=== PATIENT | female | born 1995 | race Caucasian/White ===

== ENCOUNTER 2020-07-14 09:15 | Inpatient (IN) | payer OTHER, SELFPAY ==
--- NOTE | 2020-07-14 10:05 | W.PM.HP.N ---
History of Present Illness 25 yo @ 38 weeks in active labor. Evaluated @ 6 AM - cat 1 NST with 1 cm/70%/0 station cervix At home rested, ctx more intense steady and q 2 min - some bloody show, ruptured spon @ ~10:00 - mec noted low back discomfort worst part so far. good movement. GBS neg taking liquids well - not hungry no n/v/d - no covid sx [facility] reviewed and attached to paper chart no sd risk - efw 3200 gm, no gdm O:strong, barely tolerating ctx they are intense and persistent lungs - clear cv s- reg, no murmur abd - soft in between ctx, non tender with ctx - quite firm no edema distally, nl reflexes distally cervix - 4 cm/90%/+1 station/ot/ mod mec/vtx NST - category 1 - no decels, steady strong ctx Q2 min A: Early vs active labor mec with srom GBS neg Maternal and wellbeing P: Extensive counselling re pain mgmt options for labor - she wishes to start with nitrous encourage walking, shower, tactile support from partner Expect follow EFJasmine, mamta garcia HL, cont po fluids Ulisses Croft M.D.
[2020-07-14 11:09] LABS: HCT 41.7 % (36.0-46.0); MCH 30.6 pg (27.0-33.0); MCHC 33.6 % (32.0-36.0); MPV 9.7 fL (8.0-11.0); Platelet Count 295 10^3/uL (130-400); RBC 4.58 10^6/uL (3.93-5.22); RDW 12.5 % (11.7-14.6); WBC 24.12 10^3/uL (4.4-10.8)
[2020-07-14] MEDS: fentaNYL 100 MCG/2 ML VIAL (12:47)
[2020-07-14] MEDS: Ibuprofen 600 MG TAB PO (20:14)
[2020-07-14] MEDS: Acetaminophen 325 MG TAB 650 MG PO (20:14)
[2020-07-15] MEDS: Acetaminophen 325 MG TAB 650 MG PO ×4 (06:49→23:48)
[2020-07-15] MEDS: Ibuprofen 600 MG TAB PO ×3 (06:49→19:27)
[2020-07-16] MEDS: Ibuprofen 600 MG TAB PO ×2 (03:59→09:49)
[2020-07-16] MEDS: Acetaminophen 325 MG TAB 650 MG PO (07:52)
[2020-07-16 08:17] LABS: COVID-19 RT-PCR UVMMC Result Negative (Negative)
== END 2020-07-16 13:55 | disposition home or self-care (01) | DRG 807 ==
PROVIDERS: Admitting Provider Family Medicine; PCP Family Medicine; Visit Provider Family Medicine
DX: O62.1 Secondary uterine inertia (principal); Z37.0 Single live birth; O70.1 Second degree perineal laceration during delivery; O69.81X0 Labor and delivery complicated by cord around neck, without compression, not applicable or unspecified; O77.0 Labor and delivery complicated by meconium in amniotic fluid; O76 Abnormality in fetal heart rate and rhythm complicating labor and delivery; O75.81 Maternal exhaustion complicating labor and delivery; O90.89 Other complications of the puerperium, not elsewhere classified; O42.02 Full-term premature rupture of membranes, onset of labor within 24 hours of rupture; I95.2 Hypotension due to drugs; T41.3X5A Adverse effect of local anesthetics, initial encounter; Z3A.38 38 weeks gestation of pregnancy; Z11.59 Encounter for screening for other viral diseases; N39.41 Urge incontinence
CPT/HCPCS: 36415; 85027; 86850; 86900; 86901; 99223; U0003; J3010

== ENCOUNTER 2022-07-15 04:50 | Inpatient (IN) | payer BC, SELFPAY ==
[2022-07-15] VITALS (89 sets, daily range): BP systolic 76–131; BP diastolic 42–83; PULSE 68–115; RESP 14–18; TEMP 36.5–37.3; O2SAT 96–100; BMI 23.3
--- NOTE | 2022-07-15 05:04 | W.PM.OBHPL1 ---
Date of service: 07/15/22 Time of Service: 05:05 Assessment and Plan Assessment and plan (1) and not yet delivered in third trimester: Status: Acute Assessment and plan: at 40 weeks presents in active labor, GBS pos, cat I FHT with regular contraction pattern. Requests epidural for pain control. PCN ppx for GBS status. Intermittent monitoring. Plan for . (2) GBS carrier: Status: Acute (3) Normal labor: Status: Acute OB-HPI Labor/Delivery History of Present Illness Reason for Visit: Labor Chief Complaint: Uterine Contractions. DEEDEE Calculator Estimated Delivery Date Method Current WG Current Estimate 07/15/22 LMP (Certain) 40w 0d Comments: 27 yo presents at 40 weeks for labor evaluation. called overnight at 2:40am with 1-2 hours of contractions every 10-20 minutes and getting closer and more intense, no LOF, no VB, good FM. Called back at 4am with contractions every 5 minutes and unable to talk through them. Advised to present to [facility] as she is GBS positive. history notable for O pos, ab neg, RI, GBS positive. COVID pos in second trimester, had been on aspirin until 36 weeks. First delivery with long labor and use of vacuum. Declined genetic testing. Having a girl. History of Present Expected Delivery Route/Plan [facility] All Active Problems (Updated 07/15/22 @ 05:46 by Rama Curtis) Normal labor (Acute) and not yet delivered in third trimester (Acute) GBS carrier (Acute) Social History Smoking/Tobacco Use Status: Never Smoking risk assessment performed?: Yes Alcohol Intake: former Drug use: Never Substance use type: does not use Do you feel safe at home: Yes Do you feel safe in your relationship?: Yes History History 2 Para 1 Hx # Term Pregnancies Multiple births Hx # Pregnancies Ectopic pregnancies AB induced Hx Number of Living Children AB spontaneous Meds Allergies and Home Medications Allergies Allergy/AdvReac Type Severity Reaction Status Date / Time No Known Allergies Allergy Unverified 07/15/22 05:21 Home Medications Medication Instructions Recorded Confirmed Type twnftcty-sqp-Fn-FA 1 mg tab PO 07/15/22 History tablet Exam Physical Exam Vital Signs Reviewed: Yes Constitutional Constitutional: no acute distress Detailed Labor and Delivery Exam Dilation: 5 Effacement (%): 90 station: -2 Cerna Score: Cervical Points Exam 0 1 2 3 Dilation Closed 1-2cm 3-4 cm 5-6cm Effacement 0-30% 40-50% 60-70% 80% Consistency Firm Medium Soft Station -3 -2 -1,0 +1,+2 Position Posterior Mid Anterior Amniotic Membrane Status: Intact Contraction Frequency(min): 4-5 Contraction Duration(sec): 60 Contraction Intensity: Moderate/Strong Fetus A Heart Rate Baseline: 135 Monitor Accelerations: 15 X 15 Monitor Decelerations: None Variability: Moderate (6-25 BPM) Presentation: Vertex Categories: Category I Est. Weight: 2948.35 g Respiratory Exam Respiratory Exam: Normal Cardiovascular Exam Cardiovascular Exam: Normal Results Results Group Beta Strep: Positive Blood Type: O+ Rubella Status: Immune Varicella Immunity: Not Tested Risk Assessment Risk for Shoulder Dystocia Increased Risk?: No Risk for Pre-Eclampsia Daily Dose ASA Indicated: No Risk for Post- Hemorrhage At Risk?: No Risks Reviewed Risks Reviewed Upon Admission: Yes
[2022-07-15] MEDS: Penicillin G POT. 5,000,000 UNITS in Normal Saline 100 ML 200 UNITS IVPB (05:58)
[2022-07-15] MEDS: Normal Saline Flush 10 ML SYR IVP (06:00)
[2022-07-15 06:06] LABS: HCT 39.3 % (36.0-46.0); HGB 13.4 g/dL (11.2-15.7); MCH 31.2 pg (27.0-33.0); MCHC 34.1 % (32.0-36.0); MCV 92 fL (80-95); MPV 10.1 fL (8.0-11.0); Platelet Count 230 10^3/uL (130-400); RBC 4.29 10^6/uL (3.93-5.22); RDW 12.8 % (11.7-14.6); RDW-SD 42.7 fL; WBC 9.72 10^3/uL (4.4-10.8)
--- NOTE | 2022-07-15 06:12 | ANES.PREOP_ITS ---
General Info Date of Service Date Performed: 07/15/22 Height: 5 ft 5 in Weight: 63.503 kg Body Mass Index (BMI): 23.3 Meds Allergies and Home Medications Allergies Allergy/AdvReac Type Severity Reaction Status Date / Time No Known Allergies Allergy Unverified 07/15/22 05:21 Home Medication Medication Instructions Recorded wtrbzbbt-nvr-Gw-FA 1 mg tab PO 07/15/22 tablet Current Visit Medications: Current Medications Generic Name Dose Route Start Last Admin Trade Name Freq PRN Reason Stop Dose Admin Sodium Chloride 500 mls @ 0 mls/hr 07/15/22 04:50 Saline 500ml Bag IV PRN PRN As Directed Penicillin G Potassium 3,000, 50 mls @ 100 mls/hr 07/15/22 09:00 000 units/ Sodium Chloride IVPB Q4H KALANI IV Miscellaneous Supplies 1 each 07/15/22 05:00 07/15/22 05:40 Iv Access IV 1 each DIRECTED KALANI Administration Sodium Chloride 0 ml 07/15/22 04:50 07/15/22 06:00 Normal Saline Flush 10 Ml Syr IVP 10 ml PRN PRN Administration PFSH Active Problems Active Problems: Problem Status Onset Code Normal labor O80, Z37.9 and not yet delivered in third trimester Z34.93 GBS carrier Z22.330 Tobacco Smoking/Tobacco Use Status: Never Alcohol Alcohol Intake: former Substance Use Substance use: Never Substance use type: does not use Prental History History 2 Para 1 Hx # Term Pregnancies Multiple births Hx # Pregnancies Ectopic pregnancies AB induced Hx Number of Living Children AB spontaneous Vital Signs and Lab Results Vital Signs Most Recent Vital Signs in EMR: Most Recent Vital Signs Temp Pulse Resp BP 36.5 C 87 18 128/79 07/15/22 05:14 07/15/22 05:14 07/15/22 05:14 07/15/22 05:14 Lab Results Result Diagrams: 07/15/22 05:40 Blood Type / Crossmatch: No Data to Display Complete Blood Count: White Blood Count 9.72 10^3/uL (4.4-10.8) 07/15/22 05:40 Red Blood Count 4.29 10^6/uL (3.93-5.22) 07/15/22 05:40 Hemoglobin 13.4 g/dL (11.2-15.7) 07/15/22 05:40 Hematocrit 39.3 % (36.0-46.0) 07/15/22 05:40 Platelet Count 230 10^3/uL (130-400) 07/15/22 05:40 Complete Metabolic Panel: No Data to Display Liver Function Panel: No Data to Display Coagulation Panel: No Data to Display Cardiac Panel: No Data to Display Arterial Blood Gas: No Data to Display Venous Blood Gas: No Data to Display Pancreas Panel: No Data to Display Thyroid Panel: No Data to Display Infectious Disease: Coronavirus 2019 Source Nasal/Nares 07/15/22 05:45 HIV (1&2) Ag and Ab, 4th Generation Pending 07/15/22 05: 40 Blood Cultures: No Data to Display Toxicology Panel: No Data to Display Panel: No Data to Display Anesthesia Assessment and Plan Anesthesia History Personal History: No History of Anesthesia Complications Family History: No Family History of Anesthesia Complications Exercise Tolerance Exercise Tolerance: Metabolic Equivalents>4 Cardiac & Pulmonary Exam Cardiac Exam: Normal S1/S2 Heart Sounds Pulmonary Exam: Clear Bilateral Breath Sounds Implantable Cardiac Device Does patient have a Pacemaker or an ICD?: No Airway Exam Known Difficult Airway: No Mallampati Class: 2 Mouth Opening: Normal (> 3cm) Thyromental Distance: Greater than 3 cm Neck Range of Motion: Full ROM Neck Circumference: Normal Teeth Condition: Normal Dentition ASA Classification ASA Score: ASA 2 Emergency Case?: No NPO Status NPO Status: Full Stomach Status Status: Other Anesthesia Plan Resuscitation Status: Full Code Anesthesia Technique: Epidural Anesthesia Airway Planned: Natural Airway Pain Management: Epidural Monitors Used: Standard Monitors Preoperative Comments:: 27 yo female requesting labor epidural. Sig PMHx: denies major. Previous Anes: -epidural JOAQUIN 5 cm, 100 mcg fent/6 ml off of pump - 10 of ephedrine for dizzyness, 3 mL more with good sesation of pain, pump eventually turned down to 6 mL/hr.
[2022-07-15 06:36] LABS: Source Nasal/Nares
[2022-07-15] MEDS: Lactated Ringers 500 ML IV (06:37)
[2022-07-15] MEDS: FentaNYL/ROPIvacaine 2 mcg/ml and 0.1% 200 ML CADD Cassette EP (06:53)
--- NOTE | 2022-07-15 07:04 | W.ANESNEU ---
Epidural/Spinal Catheter Date Performed: 07/15/22 Procedure Start: 06:27 Procedure Stop: 06:35 Requesting Provider: Rama Curtis Procedure Location: Obstetrics Reason Performed: Labor Epidural Standard Monitors Applied: ECG, Blood Pressure and SpO2 Patient Position: Sitting Sedation Given (Indicate Dose Given): No Sedation given Patient Mental Status: Awake Sterility: Hand Hygiene, Surgical Cap, Surgical Mask, Sterile Gloves, Sterile Drape/Sheet and Chlorhexidine Procedure Location: L2-L3 Interspace Epidural Needle: Tuohy 17 Guage Needle Length: 3.5 Inch Needle Approach: Midline Epidural Procedure: Skin Prepped, JOAQUIN to Saline Used and Epidural Catheter Placed (wire reinforced) Catheter Placed?: Catheter Placed Test Dose (Indicate Dose Given): 3ml 1.5% Lidocaine with 1:200K Epinephrine Given and Negative Test Dose Loss of Resistance Depth (cm): 3 Catheter depth at skin (cm): 9 Dressing: Sorbaview Dressing Placed Epidural Provider Bolus (Indicate Dose Given): Total Ropivacaine 0.1% with Fentanyl 2mcg/ml Given from pump. (ml) Dose:: 5 mL Additives (Indicate Dose Given ): None Infusion Medication: Medication Infusion Began Medication Infusion: Ropivacaine 0.1% with Fentanyl 2mcg/ml Maintenance Infusion Rate (ml/hour): 10 PCEA Bolus Dose (ml): 5 Block Level: N/A Paresthesia: None Ultrasound: Used to radhika site Number of Attempts (See previous attempts in note section): 1 Procedure Tolerated: No Complications Procedure Outcome: Successful Performed By: Jamie Nelson
--- NOTE | 2022-07-15 07:36 | W.PM.OBNL1 ---
Date of service: 07/15/22 Time of Service: 07:37 Pelvic Exam Dilation: 8 Effacement (%): 100 station: 0 Contractions Contraction Frequency(min): 3-4 Contraction Duration(sec): 45 Fetus A Heart Rate Baseline: 125 Presentation: Cephalic Variability: Moderate (6-25 BPM) Categories: Category I Accelerations: 15 X 15 Decelerations: None Amniotic Membrane Status: Intact Assessment and Plan Assessment and plan (1) Normal labor: Status: Acute Assessment and plan: at 40w in active labor, now with epidural and making excellent progress. FHT cat I. Has had one dose of PCN, second dose due 9:30-10am. Patient to rest. Anticipate . (2) GBS carrier: Status: Acute Objective Temp Pulse Resp BP Pulse Ox 36.5 C 91 H 16 126/78 98 07/15/22 05:14 07/15/22 07:36 07/15/22 07:28 07/15/22 07:25 07/15/22 07:31 Laboratory Results WBC 9.72 10^3/uL (4.4-10.8) 07/15/22 05:40 RBC 4.29 10^6/uL (3.93-5.22) 07/15/22 05:40 Hgb 13.4 g/dL (11.2-15.7) 07/15/22 05:40 Hct 39.3 % (36.0-46.0) 07/15/22 05:40 MCV 92 fL (80-95) 07/15/22 05:40 MCH 31.2 pg (27.0-33.0) 07/15/22 05:40 MCHC 34.1 % (32.0-36.0) 07/15/22 05:40 RDW 12.8 % (11.7-14.6) 07/15/22 05:40 Plt Count 230 10^3/uL (130-400) 07/15/22 05:40 MPV 10.1 fL (8.0-11.0) 07/15/22 05:40 COVID-19 Source Nasal/Nares 07/15/22 05:45 Patient ABO/Rh O Positive 07/15/22 05:50 Antibody Screen NEGATIVE 07/15/22 05:50 Subjective Interval history since last seen: Comfortable now with epidural. Can feel contractions but not painful. No side effects from epidural noted. Results Hemoglobin/Hematocrit: Hgb 13.4 g/dL (11.2-15.7) 07/15/22 05:40 Hct 39.3 % (36.0-46.0) 07/15/22 05:40
[2022-07-15 07:48] LABS: COVID-19 PCR Negative (Negative)
[2022-07-15] MEDS: Penicillin G POT. 3,000,000 UNITS in Normal Saline 50 ML 100 UNITS IVPB (09:07)
--- NOTE | 2022-07-15 10:40 | W.PM.OBNL1 ---
Date of service: 07/15/22 Time of Service: 10:41 Pelvic Exam Dilation: 9.5 Effacement (%): 90 station: -1 Cervix Position: anterior Consistency: soft Vaginal Exam Presentation: Vertex Contractions Monitor Mode: External Contraction Frequency(min): 3 Contraction Duration(sec): 60 Intensity: Moderate/Strong Fetus A Monitor: External (US) Heart Rate Baseline: 120 Presentation: Vertex Variability: Moderate (6-25 BPM) FHR Rhythm: Regular Characteristics: Normal Accelerations: Present Decelerations: Early Recurrence: Recurrent Amniotic Membrane Status: Ruptured Assessment Note: Category 1 tracing with early decelerations. AOM performed with copious clear fluid. Assessment and Plan Assessment and plan (1) Normal labor: Status: Acute Assessment and plan: Tobin is nearly complete, AROM performed with clear fluid. SVE 9.5/90/-1. GBS positive with 2 doses of pen in, so adequate prophylaxis. Epidural is effective. FHT category 1 with early decels. Recent straight cath with 250cc output. Anticipate delivery soon. (2) GBS carrier: Status: Acute Assessment and plan: See above. Objective Temp Pulse Resp BP Pulse Ox 36.5 C 87 18 124/73 98 07/15/22 07:36 07/15/22 10:07 07/15/22 10:07 07/15/22 10:07 07/15/22 09:01 Laboratory Results WBC 9.72 10^3/uL (4.4-10.8) 07/15/22 05:40 RBC 4.29 10^6/uL (3.93-5.22) 07/15/22 05:40 Hgb 13.4 g/dL (11.2-15.7) 07/15/22 05:40 Hct 39.3 % (36.0-46.0) 07/15/22 05:40 MCV 92 fL (80-95) 07/15/22 05:40 MCH 31.2 pg (27.0-33.0) 07/15/22 05:40 MCHC 34.1 % (32.0-36.0) 07/15/22 05:40 RDW 12.8 % (11.7-14.6) 07/15/22 05:40 Plt Count 230 10^3/uL (130-400) 07/15/22 05:40 MPV 10.1 fL (8.0-11.0) 07/15/22 05:40 COVID-19 Source Nasal/Nares 07/15/22 05:45 SARS-CoV-2 (PCR) Negative (Negative) 07/15/22 05:45 Patient ABO/Rh O Positive 07/15/22 05:50 Antibody Screen NEGATIVE 07/15/22 05:50 Vital Signs Reviewed: Yes Subjective Patient Reports: No new Complaints Interval history since last seen: Tobin is doing well. Epidural effective for pain management. Hasnt voided since before epidural. Results Hemoglobin/Hematocrit: Hgb 13.4 g/dL (11.2-15.7) 07/15/22 05:40 Hct 39.3 % (36.0-46.0) 07/15/22 05:40
[2022-07-15] MEDS: Oxytocin/Normal Saline 30 UNIT/500 ML BAG 334 UNITS IV (12:55)
[2022-07-15] MEDS: Dibucaine 1% 28 GM TUBE TP ×2 (13:00→18:57)
[2022-07-15] MEDS: miSOPROStol 200 MCG TAB (13:29)
[2022-07-15] MEDS: Lactated Ringers 1,000 ML 999 ML IV (13:33)
[2022-07-15] MEDS: Tranexamic Acid 1,000 MG/10 ML VIAL 1000 MG (13:35)
[2022-07-15] MEDS: Methylergonovine 0.2 MG/ML VIAL (13:37)
--- NOTE | 2022-07-15 14:05 | OBVDS_ITS ---
Date of service: 07/15/22 Time of Service: 14:05 OB Labor/ Delivery Information Baby A Delivery Delivery Method: Spontaneaous Presentation: Vertex Cephalic Position: Vertex Vertex Position: Right Occipital Anterior Breech Position: N/A Cord Description-Baby A: 3 Vessels, Nuchal Cord and Reduced (after delivery) Amniotic Fluid: Clear Estimated Blood Loss: 1000cc Delivery Outcome: Liveborn Complications: none Transferred: Remains with Mother Providers Doctor: Serjio Arriola Marketing Intelligence Manager: Jamie Nelson Construction Plant Operator: Serjio Arriola Nurse: Nathalie Fritz Nurse: Sis Galeano Other: Carrie (Student with LR) Labor/Delivery Information Number of Babies in Womb: 1 Steroids Given: None Reason Steroids Not Administered: N/A Group Beta Strep: Positive Antibiotics Administered: Yes Number of Doses of Antibiotics: 2 Rubella Status: Immune Blood Type: O+ Varicella Immunity: Not Tested Born En Route: No Maternal Complications: Hemorrhage Shoulder Dystocia: No Stages of Labor Onset of Labor Date: 07/15/22 Onset of Labor Time: 00:00 Complete Dilatation Date: 07/15/22 Complete Dilatation Time: 11:48 Labor - Stage 1 Duration: 0 minutes ROM Baby A: 07/15/22 ROM Baby A: 10:34 ROM Total Time- Baby A: [id number] Infant Delivery Date-Baby A: 07/15/22 Delivery Time-Baby A: 12:54 Labor Stage 2 Duration: 1 hours and 6 minutes Placenta Delivery Date-Baby A: 07/15/22 Placenta Delivery Time-Baby A: 13:27 Labor-Stage 3 Duration: 33 minutes Total Length of Labor-Baby A: 12 hours and 54 minutes Placenta Status: Delivered Baby A Gender: Female Gestational Status: Term (39-41.6 wks) Gestational Age in Weeks/Days: 40 Weeks and 0 Days Score-1 Minute Interval(Baby A) Heart Rate-1 minute: 100 BPM or Greater Respiratory Effort- 1 minute: Spontaneous/Strong Cry Muscle Tone-1 minute: Active Movement Reflex Response-1 minute: Prompt Response Color-1 minute: Bluish Hands or Feet Total Score-1 minute: 9 Score-5 Minute Interval(Baby A) Heart Rate- 5 minute: 100 BPM or Greater Respiratory Effort-5 minute: Spontaneous/Strong Cry Muscle Tone-5 minute: Active Movement Reflex Response-5 minute: Prompt Response Color-5 minute: Bluish Hands or Feet Total Score- 5 minute: 9 Procedure Procedures: Control of Hemorrhage , see below in PPH Note / Retained Placenta Extraction , see below in PPH Note Interventions Repair of Laceration Type: Perineal, Laceration Extension: Second Degree. Sponge Count Correct: Yes, Sharp Count Correct: Yes. Laceration Repair Note: 2nd degree perineal laceration repaired in the usual fashion with 3-0 vicryl with running deep layer of suture for hemostasis then skin repair of perineum and vaginal wall. Hemorrrhage Note Note Note: After delivery, placenta was retained for 33 minutes, but eventually delivered with firm pressure. Dr Solorio had already been called for support of possible retained placenta. Pitocin was running since delivery but had been stopped to allow delivery of placenta. No significant visible bleeding until after placenta delivered at which time there was a brisk flow. Fundus was found to still be quite large and soft. Restarted after placenta delivered at 1327. Miso 800mcg was given at 1329. LR Bolus was also started at this point at 1333. Patient complained of dizziness and BP was 76/42 at this point.TXA and Methergine were ordered but not yet given. I explored the lower uterine segment for clots and several large clots were expelled immediately, but bleeding continued. I then explored the uterus in its entirety and removed several more large clots. At this time the fundus had contracted significantly and was firm. At this point Dr Solorio arrived. Bleeding had slowed significantly at this time. She then also explored the uterus for further clots and the TXA and Methergine were given as well as a second bolus of pitocin. Bleeding at this point was controlled. Total blood loss estimated to be 1000cc in the bag. Blood pressure was already increasing. Hemorrhage Recognized Date Hemorrhage Recognized: 07/15/22 Time Hemorrhage Recognized: : Call for Help Date: 07/15/22 Time: : 2nd RN in Room Date: 07/15/22 Time: :27 2nd RN: Sis Galeano Provider in Room Date: 07/15/22 Time: 01:27 Provider: Serjio Arriola QBL Scale in Room Date: 07/15/22 Time: 12:54 OB Emergency Cart at Bedside Date: 07/15/22 Time: 12:54 IV Site Left Forearm: Date: 07/15/22 IV Catheter Gauge: 18 Moreau Catheter Urinary Catheter Date of Insertion: 07/15/22 Time of insertion: 13:40 Urinary Catheter Size: 16 Balloon Size: 10 Inserted by: Nathalie Fritz Medication Administration 1st Administration: Medication: Oxytocin 30U/500 ml IV Medication Other/Dose/Route: IV Administration Date: 07/15/22 Administration Time: 13:00 2nd Administration: Medication: Misoprostol 800 mcg Rectal Administration Date: 07/15/22 Administration Time: 13:29 3rd Administration: Medication: TXA 1 gm IV Administration Date: 07/15/22 Administration Time: 13:35 4th Administration: Medication: Oxytocin 30U/500 ml IV Medication Other/Dose/Route: 2nd Bolus Administration Date: 07/15/22 Administration Time: 13:36 5th Administration: Medication: Methergine 0.2 mg IM Administration Date: 07/15/22 Administration Time: 13:37 Second Provider in Room Date: 07/15/22 Time: 13:32 Provider: Symone Sloorio Total Blood Loss for PPH Event Quantitative Blood Loss: 1,000 Labs Drawn Labs Drawn: No
--- NOTE | 2022-07-15 14:13 | W.ANESPOSTOP ---
Postoperative Evaluation Date, Time and Location Date Performed: 07/15/22 Time Performed: 14:13 Patient Location: Obstetrics Vital Signs Most Recent Imported Vital Signs: Most Recent Vital Signs Temp Pulse Resp BP Pulse Ox 36.5 C 87 18 110/72 98 07/15/22 07:36 07/15/22 13:45 07/15/22 10:07 07/15/22 13:45 07/15/22 09:01 Assessment Mental Status: Awake (Alert & Oriented to Patient Baseline) Airway and Respiratory Function: Patent airway with normal (patient baseline) respiratory exam Cardiovascular Function: Hemodynamically Stable Hydration Status: Adequately Hydrated Nausea & Vomiting: No Nausea or Vomiting Pain: Pain is tolerable per patient Peripheral Nerve Block: Patient did not receive a nerve block
[2022-07-15] MEDS: ceFAZolin 1 GM/50 ML BAG IVPB (15:58)
[2022-07-15] MEDS: Hamamelis Leaf/Glycerin 100 EACH BOX PR (18:56)
[2022-07-15] MEDS: Acetaminophen 325 MG TAB 650 MG PO (18:57)
[2022-07-15] MEDS: Ibuprofen 600 MG TAB PO (18:58)
[2022-07-16] MEDS: Ibuprofen 600 MG TAB PO ×4 (00:47→23:18)
[2022-07-16] MEDS: Acetaminophen 325 MG TAB 650 MG PO ×5 (00:47→22:01)
--- NOTE | 2022-07-16 07:16 | W.PM.OBPNV1 ---
Date of service: 07/16/22 Time of Service: 07:16 Assessment and Plan Assessment and plan (1) (normal spontaneous vaginal delivery): Status: Acute Assessment and plan: 27yo [id number] SP with retained placenta and PPH. Doing well PP day 1. BP has returned to normal, H/H pending. Will start oral Iron, consider Iron Transfusion depending on H/H. Pain is considerable due to uterine sweep yesterday, but doing well on NSAIDS. She did receive a dose of Ancef yesterday to prevent infection. No further bleeding. Moreau is out, but not voided yet. Will moniter that. Passing flatus, no BM. She will need some nursing support today and will see . Anticipate she stays another day and home tomorrow. Subjective Subjective Interval history: Tobin is doing well. Does have significant uterine soreness. Adequately controlled on alternating Tylenol and Ibu. Moreau out this morning, no void yet. Was up out of bed with some difficulty, but no dizziness. Lochia normal. Passing gas, no BM yet. Nursing is going ok. Shallow latch so pain with nursing. Patient comments: Pain well controlled, Tolerating diet and Flatus present baby status: Doing well, Nursing well, Rooming in and Strong Bonding Observed Maxwell feeding status: Exclusively breast feeding Exam Physical Exam Vital signs: Temp Pulse Resp BP Pulse Ox 37.3 C 96 H 14 122/74 98 07/15/22 20:10 07/15/22 20:10 07/15/22 20:10 07/15/22 20:10 07/15/22 19:00 Vital Signs Reviewed: Yes Constitutional Constitutional: no acute distress HEENT Exam HEENT Exam: Normal Respiratory Exam Respiratory Exam: Normal Cardiovascular Exam Cardiovascular Exam: Normal Abdominal Exam Abdomen: Tender Fundal Exam Fundus: Below Umbilicus and Firm Extremities Exam Extremity Exam: Normal Skin Exam Skin Exam: Normal Neurological Exam Neurological Exam: Normal Psychiatric Exam Psychiatric Exam: Normal Results Hemoglobin/Hematocrit: Hgb 13.4 g/dL (11.2-15.7) 07/15/22 05:40 Hct 39.3 % (36.0-46.0) 07/15/22 05:40 Hemorrrhage Note Hemorrhage Recognized Date Hemorrhage Recognized: 07/15/22 Time Hemorrhage Recognized: :27 Call for Help Date: 07/15/22 Time: 01:27 2nd RN in Room Date: 07/15/22 Time: 01:27 2nd RN: Sis Galeano Provider in Room Date: 07/15/22 Time: 01:27 Provider: Serjio RAY Scale in Room Date: 07/15/22 Time: 12:54 OB Emergency Cart at Bedside Date: 07/15/22 Time: 12:54 Moreau Catheter Urinary Catheter Date of Insertion: 07/15/22 Time of insertion: 13:40 Urinary Catheter Size: 16 Balloon Size: 10 Inserted by: Nathalie Curiel Provider in Room Date: 07/15/22 Time: 13:32 Provider: Symone Solorio Total Blood Loss for PPH Event Quantitative Blood Loss: 1,000 Labs Drawn Labs Drawn: No
[2022-07-16 07:45] LABS: HGB 9.7 g/dL (11.2-15.7); MCH 31.1 pg (27.0-33.0); MCHC 33.4 % (32.0-36.0); MCV 93 fL (80-95); MPV 9.8 fL (8.0-11.0); Platelet Count 187 10^3/uL (130-400); RBC 3.12 10^6/uL (3.93-5.22); RDW 13.1 % (11.7-14.6); RDW-SD 44.7 fL
[2022-07-16 08:30] VITALS: BP 122/73; PULSE 91; RESP 12; TEMP 36.9
[2022-07-16] MEDS: Ferrous Sulfate 325 MG TAB PO (08:40)
[2022-07-16 09:48] LABS: HIV-1/2 Ag & Ab Screen Negative (Negative)
[2022-07-16 16:40] VITALS: BP 119/70; PULSE 98; RESP 18; TEMP 36.7; O2SAT 100
[2022-07-16 23:15] VITALS: BP 120/75; PULSE 92; RESP 17; TEMP 37; O2SAT 100
[2022-07-17] MEDS: Acetaminophen 325 MG TAB 650 MG PO (07:29)
[2022-07-17] MEDS: Ibuprofen 600 MG TAB PO (07:30)
[2022-07-17] MEDS: Ferrous Sulfate 325 MG TAB PO (07:30)
[2022-07-17 07:35] VITALS: BP 113/78; PULSE 101; RESP 16; TEMP 36.4
[2022-07-17 10:36] LABS: HCT 31.5 % (36.0-46.0); HGB 10.4 g/dL (11.2-15.7); MCH 31.3 pg (27.0-33.0); MCV 95 fL (80-95); MPV 9.6 fL (8.0-11.0); Platelet Count 228 10^3/uL (130-400); RBC 3.32 10^6/uL (3.93-5.22); RDW 13.2 % (11.7-14.6); RDW-SD 45.7 fL; WBC 11.62 10^3/uL (4.4-10.8)
--- NOTE | 2022-07-17 11:25 | DSE_ITS ---
Date of service: 07/17/22 Time of Service: 11:25 DS: Diagnosis Discharge Diagnosis (1) (normal spontaneous vaginal delivery): Status: Acute Asessment and Plan: 27yo [id number] sp with PPH and retained placenta. GBS+ with adequate prophylaxis. Uncomplicated labor and delivery until retained placenta followed by post hemmorhage. See delivery note for details. She recovered well, with BP in normal range after delivery, no transfusion or IV iron required. Oral iron only. H/H increasing, today at 10.4. Will continue daily iron at home. BP on DC 113/78. Nursing well, although some pain and blistering. Normal exam, fundus firm. +BM, lochia normal. Pain controlled with NSAIDS. DC home today with follow up in clinic with Dr Wright on Wednesday. Discharge Plan Disposition Patient Disposition: HOME Condition: Good Discharge Details Reason For Visit: Labor Admit Date/Time: 07/15/22 04:50 Admit Provider: Rama Curtis Attending Provider: Rama Curtis Primary Care Provider: Clem Croft Home Meds and New Rx's Prescriptions: No Action 1 mg Tablet 1 tab PO 1XD Discharge Instructions Stand Alone Forms: BC Instructions, BC Post Vaginal Del iver Activity:: Activity as Tolerated Equipment/Supplies:: No Equipment Needed Diet:: As Tolerated Discharge Orders Discharge Orders: Discharge Order (Routine); Ordered 07/17/22 Ordered By: Serjio Arriola OB:DS Summary Summary Vaginal Delivery Method: Spontaneaous Laceration Description: Perineal Laceration Extension: Second Degree Contraception Discussed Contraception Discussed: Yes Contraceptive Plan: IUD, Infant Gender-Baby A: Female weight: 3220 g Disposition of Baby A: Home Gender-Baby B: Female Status at Discharge Functional status at discharge: independent ambulation Overall status at discharge: patient is progressing back to baseline Mental Status: mental status grossly normal Speech and Movement: speech and movement normal Mood: congruent mood Affect: normal affect Time Spent with Patient providing and/or coordinating discharge services: Less than 30 minutes Exam Physical Exam Vital signs: Temp Pulse Resp BP Pulse Ox 36.4 C L 101 H 16 113/78 100 07/17/22 07:35 07/17/22 07:35 07/17/22 07:35 07/17/22 07:35 07/16/22 23:15 Vital Signs Reviewed: Yes Constitutional Constitutional: no acute distress HEENT Exam HEENT Exam: Normal Respiratory Exam Respiratory Exam: Normal Cardiovascular Exam Cardiovascular Exam: Normal Abdominal Exam Abdomen: Tender Fundal Exam Fundus: Below Umbilicus and Firm Extremities Exam Extremity Exam: Normal Skin Exam Skin Exam: Normal Neurological Exam Neurological Exam: Normal Psychiatric Exam Psychiatric Exam: Normal PFSH All Active Problems (Updated 07/16/22 @ 07:18 by Serjio Arriola) (normal spontaneous vaginal delivery) (Acute) Normal labor (Acute) and not yet delivered in third trimester (Acute) GBS carrier (Acute) Social History Smoking/Tobacco Use Status: Never Smoking risk assessment performed?: Yes Alcohol Intake: former Drug use: Never Substance use type: does not use Do you feel safe at home: Yes Do you feel safe in your relationship?: Yes History History 2 Para 1 Hx # Term Pregnancies Multiple births Hx # Pregnancies Ectopic pregnancies AB induced Hx Number of Living Children AB spontaneous DS: Data Vitals/I&O Vitals and I&O: Vital Signs Temperature 36.4 C L 07/17/22 07:35 Pulse 101 H 07/17/22 07:35 Pulse Rhythm Regular 07/17/22 07:35 Respiratory Rate 16 07/17/22 07:35 Respiratory Depth Normal 07/16/22 20:20 Blood Pressure 113/78 07/17/22 07:35 Blood Pressure Mean 89 07/17/22 07:35 Pulse Oximetry 100 07/16/22 23:15 Pain Level 5 07/17/22 07:35 Intake & Output 07/16/22 07/16/22 07/17/22 11:59 23:59 11:59 Intake Total 733.15 / 733.15 Output Total 1400 / 1400 Balance -666.85 / -666.85 Intake: IV 733.15 / 733.15 Output: Urine 1400 / 1400 Other: Urine Color Yellow Data Completed and Pending Labs on day of discharge: Labs from last 24 hours 07/17/22 07/15/22 10:28 05:40 WBC 11.62 H RBC 3.32 L Hgb 10.4 L Hct 31.5 L MCV 95 MCH 31.3 MCHC 33.0 RDW 13.2 Plt Count 228 MPV 9.6 HIV 1&2 Ag/Ab, 4th Gen Negative
== END 2022-07-17 12:00 | disposition home or self-care (01) | DRG 807 ==
PROVIDERS: Family Medicine; Admitting Provider Family Medicine; PCP Family Medicine; Visit Provider Family Medicine
DX: O99.824 Streptococcus B carrier state complicating childbirth (principal); Z37.0 Single live birth; O70.1 Second degree perineal laceration during delivery; O69.81X0 Labor and delivery complicated by cord around neck, without compression, not applicable or unspecified; Z3A.40 40 weeks gestation of pregnancy; O72.2 Delayed and secondary postpartum hemorrhage
CPT/HCPCS: 36415; 85027; 86850; 86900; 86901; 87389; 87635; J0690; J2210; J2540; J3490

== ENCOUNTER 2024-07-29 07:17 | Emergency (ER) | payer BC, SELFPAY ==
[2024-07-29] VITALS (35 sets, daily range): BP systolic 104–127; BP diastolic 59–75; PULSE 80–107; RESP 16; TEMP 36.7–36.9; O2SAT 96–100
--- NOTE | 2024-07-29 07:20 | W.ED.GENAD ---
Discharge Plan Disposition Patient Disposition: Home Discharge Details Clinical Impression: First trimester , Viral URI with cough, Intrauterine , Complex cyst of right ovary Primary Care Provider: Heidi Wright ED Provider: Edi Mcdaniel Home Meds and New Rx's Prescriptions: Continued phihqyfc-tiq-Gx-FA 1 mg Tablet 1 tab PO 1XD Discharge Instructions Additional Instructions: You are seen in the emergency department for your cough and fevers. Your viral swab was negative for COVID, influenza, and RSV but you likely have another virus. Please ensure you stay hydrated and are urinating at least once every 6 hours while you are awake. If you begin developing vomiting or if you pass out please return to the emergency department. Please follow-up with your OB provider. As needed for fevers you may take acetaminophen: 1. Take acetaminophen (Tylenol), 650 mg tabs every 6 hours Your ultrasound showed that your is in your uterus. There was also a 3 x 2 x 3 cm complex cystic area which is most likely a normal occurrence in the setting of called a corpus luteal cyst. If you develop sudden abdominal pain or if you become nauseous and began vomiting please return to the emergency department. Please also return to the emergency department if you develop vaginal bleeding and use more than 1 pad per hour. HPI General Date/Time Provider Initiated Documentation: 07/29/24 07:20. HPI Narrative: MDM This is an overall very well-appearing afebrile and initially tachycardic 29-year-old G3, P2 at 7 weeks with dry cough fevers body aches concerning for viral etiology for which patient will receive COVID, influenza, and RSV swabs. No pain or proportion to suggest necrotizing soft tissue infection. No nuchal rigidity to suggest meningitis so no indication for lumbar puncture. Patient does have some vaginal spotting but appears to have an intrauterine on bedside transabdominal ultrasound. Will complete formal transvaginal ultrasound as patient has not yet had 1 of these during this . No abnormal lung sounds to suggest pneumonia. Soft nontender abdomen so not suspicious for appendicitis. No dysuria no frequency so doubt UTI however given the patient is an her first trimester we will obtain urine culture. 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 8:30 AM COVID influenza RSV all negative. 10:45 AM I met with the patient following her reassuring ultrasound. She had had no significant vaginal bleeding in the emergency department. She had no vomiting. Her tachycardia resolved without intervention. She had a right sided complex cystic area most likely a corpus luteal cyst. She had an intrauterine . We discussed return indications including bleeding more than 1 pad an hour any nausea vomiting chest pain shortness of breath. She understood her return indications and is discharged with empiric trial of expectant outpatient management. Chronic conditions affecting the care of the patient: History obtained from an outside historian: N/A External record review: N/A Medications: N/A Social determinants of health affecting disposition: N/A Management discussed with: N/A Treatment/interventions considered: N/A Response to therapies provided: N/A HPI This is a G3, P2 at approximately 6 weeks arrived to the emergency department via private vehicle with her in the setting of bodyaches and fever. 2 days ago patient began having bodyaches. Yesterday she developed a fever. She has been taking 1 g of acetaminophen approximately every 8 hours. She has been occasionally nauseous but has not been vomiting. She endorses a dry cough. 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 She also had a son in neck grandmother who are sick. She has been taking previous vitamins but denies any other routine medications. She is not short of breath she denies chest pain dysuria abdominal pain and frequency. She has been spotting but has not been using more than 1 pad per hour. She denies routine tobacco, ethanol, and illicits. She has not had any sore throat. Exam General: Well-appearing in no acute distress speaking in complete sentences. Head: Normocephalic, atraumatic. Eye: Extraocular eye movements intact. No conjunctival injection. No scleral icterus. Ear, nose, mouth, throat: Grossly normal inspection. Normal voice, handling secretions normally. Uvula midline. No significant posterior oropharynx erythema. Neck: Trachea midline. No nuchal rigidity Cardiovascular: Well-perfused distal extremities. Regular rate and rhythm Respiratory: Nonlabored respiration. Clear lungs Gastrointestinal: Nondistended abdomen. Soft nontender. Musculoskeletal: No edema. Moving all 4 extremities spontaneously. Skin: Normal for age and race, grossly normal temperature and turgor. No acute rash. Neurologic: Alert and appropriate, no apparent acute deficits. Psychiatric: Mood and manner are appropriate. Grooming and personal hygiene are appropriate. Related Data Home Medications ?Medication ?Instructions ?Recorded ?Confirmed ygilqnkc-uve-Uo-FA 1 mg 1 tab PO 1XD 07/15/22 07/29/24 tablet Allergies Allergy/AdvReac Type Severity Reaction Status Date / Time No Known Allergies Allergy Unverified 07/29/24 07:26 Medical Decision Making Quality:SDOH Health Related Social Needs: No Data to Display PFSH All Active Problems (Updated 07/29/24 @ 10:46 by Edi Mcdaniel MD) Complex cyst of right ovary (Acute) Intrauterine (Acute) Viral URI with cough (Acute) First trimester (Acute) Social History Smoking/Tobacco Use Status: Never Smoking risk assessment performed?: Yes Alcohol Intake: former Drug use: Never Substance use type: does not use Do you feel safe at home: Yes Do you feel safe in your relationship?: Yes History History 2 Para 1 Hx # Term Pregnancies Multiple births Hx # Pregnancies Ectopic pregnancies AB induced Hx Number of Living Children AB spontaneous POCUS Exam (ED) Limited OB Exam DATE OF EXAM:: 07/29/24 TIME OF EXAM:: 08:03 PROVIDER THAT PERFORMED THE STUDY: Edi Mcdaniel IS THIS A REPEAT EXAM DURING THIS ENCOUNTER: No Type of Exam: Pelvic OB Trans Abdominal REASON FOR EXAM: Vaginal Bleeding Exam Complete. INCIDENTAL FINDINGS: Reassuring heart rate at 133 bpm
--- NOTE | 2024-07-29 08:15 | DI.US_ITS ---
Exam(s) US OB 1ST TRIMESTER EXAM: US OB 1ST TRIMESTER CLINICAL HISTORY: 7 weeks of spotting. TECHNIQUE: First trimester obstetrical ultrasound was performed. COMPARISON: US POCUS EXAM from 07/29/2024 FINDINGS: Submitted images reveal an an intrauterine gestational sac which contains a yolk sac and viable pole which exhibits heart rate of 135 bpm. [place]-rump length measurement is 8.2 mm, corresponding to 6 weeks and 5 days gestational age. There is a posteriorly located small subchorionic hemorrhage. Maternal ovaries: Right ovary measures 3.6 x 2.6 x 3.6 cm and contains corpus luteal cyst measuring 2.6 x 2.4 x 2.7 cm. Left ovary measures 2.4 x 1.2 by with 2.2 cm There is no fluid in the cul-de-sac and adnexal regions. IMPRESSION:: Single viable intrauterine gestation which is approximately 6 weeks and 5 days gestatio nal age by crown rump length measurement, Small posterior subchorionic hemorrhage. There is no free fluid evident in the cul-de-sac. DATA REPOSITORY:
[2024-07-29 08:17] LABS: COVID-19 PCR Negative (Negative); Influenza A PCR Negative (Negative); Influenza B PCR Negative (Negative); RSV PCR Negative (Negative)
[2024-07-29 08:20] LABS: Source Nasopharynx
--- NOTE | 2024-07-29 10:42 | DI.VRAD_ITS ---
PROCEDURE INFORMATION: Exam: US First Trimester, Transabdominal and US , Transvaginal Exam date and time: 07/29/2024 8:17 AM Age: 29 years old Clinical indication: Lmp or gestational age (in weeks): 6+5; ; Patient HX: Spotting x 1 day TECHNIQUE: Imaging protocol: Real-time transabdominal obstetrical ultrasound of the maternal pelvis and a first trimester , less than 14 weeks 0 days, with image documentation. Transvaginal imaging was used for better evaluation of the fetus, adnexa, and/or cervix. COMPARISON: US OB 2-3 TRIMESTER 02/25/2022 1:51 PM FINDINGS: GESTATION: Gestation: Intrauterine gestation. Embryonic/ heart rate: heart rate 135 bpm. Extra-embryonic membranes/Placenta: Small perigestational hematoma. BIOMETRY: Gestational age (AUA): Ultrasound measurements consistent with gestational age of 6 weeks 5 days. MATERNAL: Uterus: Uterus measures 9.4 x 4.5 x 5.9 cm. Right ovary/adnexa: Right ovary measures 3.6 x 2.6 x 3.6 cm and contains a 2.6 x 2.4 x 2.7 cm complex cystic area, likely corpus luteum cyst. Left ovary/adnexa: Left ovary measures 2.4 x 1.2 x 2.2 cm. IMPRESSION: Intrauterine as described above. Dictated and Authenticated by: Jyothi Marvin MD. Ordering:HAYLEE Daley MD
== END 2024-07-29 11:06 | disposition home or self-care (01) ==
PROVIDERS: Emergency Provider Emergency Medicine; PCP Family Medicine
DX: J06.9 Acute upper respiratory infection, unspecified (principal); R05.8 Other specified cough; N83.11 Corpus luteum cyst of right ovary; Z33.1 Pregnant state, incidental
CPT/HCPCS: 76815; 87637; 99284; 76801; 87086; 99283

== ENCOUNTER 2025-02-23 00:19 | Outpatient (CLI) | payer BC, SELFPAY ==
--- NOTE | 2025-02-23 06:30 | DI.US_ITS ---
Exam(s) US OB NATHANAEL WEIGHT EXAM: US OB NATHANAEL WEIGHT CLINICAL HISTORY: breech presentation,pre version,O32.1XXO. TECHNIQUE: Transabdominal obstetrical ultrasound was performed. COMPARISON: US US OB 2-3 TRIMESTER from 10/31/2024 FINDINGS: There is a single viable intrauterine gestation with cardiac activity identified-154 bpm The fetus is presently in breech position with spine pointing anterior-left. Amniotic fluid: There is a normal amount of amniotic fluid with an NATHANAEL of 16.7cm. Placental location: The placenta is anterior and fundal, grade 2,with no evidence of placenta previa. Dating parameters place this at approximately 36 weeks and 3 days gestational age, implying DEEDEE of 03/20/2025. BPD measures 35 weeks and 3 days HC measures 36 weeks and 3 days AC measures 37 weeks and 3 days FL measures 36 weeks and 3 days Estimated weight is 3047 gm-6 pounds 11 ounces Fetus is at the 65th percentile on the Hadlock scale. IMPRESSION:: Viable 3rd trimester gestation, as described above. Breech position Anterior-fundal placenta. Normal amount of amniotic fluid. DATA REPOSITORY:
== END 2025-02-23 00:39 ==
LOC: DI 00:20
PROVIDERS: PCP Family Medicine; Visit Provider Obstetrics & Gynecology
DX: O32.1XX0 Maternal care for breech presentation, not applicable or unspecified (principal); Z3A.37 37 weeks gestation of pregnancy
CPT/HCPCS: 76816

== ENCOUNTER 2025-02-28 05:05 | Day surgery (SDC) | payer BC, SELFPAY ==
[2025-02-28] VITALS (17 sets, daily range): BP systolic 98–124; BP diastolic 58–71; PULSE 85–102; RESP 16; TEMP 36.5–36.8; O2SAT 98–100; BMI 25.0
[2025-02-28] MEDS: Lactated Ringers 1,000 ML 125 ML IV ×2 (05:20→10:37)
[2025-02-28 05:27] LABS: HCT 36.5 % (36.0-46.0); HGB 11.9 g/dL (11.2-15.7); MCH 30.1 pg (27.0-33.0); MCHC 32.6 % (32.0-36.0); MCV 92 fL (80-95); MPV 9.9 fL (8.0-11.0); Platelet Count 237 10^3/uL (130-400); RBC 3.95 10^6/uL (3.93-5.22); RDW 14.8 % (11.7-14.6); RDW-SD 50.8 fL; WBC 10.01 10^3/uL (4.4-10.8)
--- NOTE | 2025-02-28 08:02 | ANES.PREOP_ITS ---
General Info Date of Service Date Performed: 02/28/25 Height: 5 ft 4 in Weight: 66.224 kg Body Mass Index (BMI): 25.0 Surgical Procedure: Operation Date: 02/28/25 08:55 Proposed Procedure Side Surgeon p Version, Possible Section Ann Patrick, DO Meds Allergies and Home Medications Allergies Allergy/AdvReac Type Severity Reaction Status Date / Time No Known Allergies Allergy Verified 02/27/25 09:50 Home Medication ?Medication ?Instructions ?Recorded [id number]-Mq-FA 1 mg 1 tab PO 1XD 07/15/22 tablet ferrous fumarate 324 mg (106 mg 324 mg PO DAILY 02/22/25 iron) tablet Current Visit Medications: Current Medications Generic Name Dose Route Start Last Admin Trade Name Freq PRN Reason Stop Dose Admin Ringer's Solution 1,000 mls @ 125 mls/hr 02/28/25 05:00 02/28/25 05:20 IV 03/30/25 04:59 125 mls/hr INFUSION KALANI Administration IV Miscellaneous Supplies 1 each 02/28/25 05:00 Iv Access IV 03/30/25 04:59 DIRECTED KALANI Sodium Chloride 0 ml 02/28/25 05:00 Normal Saline Flush 10 Ml Syr IVP 03/30/25 04:59 PRN PRN Sodium Chloride 0 ml 02/28/25 05:00 02/28/25 07:54 Normal Saline Flush 10 Ml Syr IVP 03/30/25 04:59 Not Given BID KALANI Sodium Chloride 0 ml 02/28/25 05:00 Normal Saline 10 Ml Vial IJ 03/30/25 04:59 DIRECTED PRN Terbutaline Sulfate 0.25 mg 02/28/25 05:00 Terbutaline 1 Mg/Ml Vial SC 03/30/25 04:59 DIRECTED KALANI PFSH Active Problems Active Problems: Problem Status Onset Code Positive GBS test Acute B95.1 History of hemorrhage Acute Z87.59 Breech presentation Acute O32.1XX0 Tobacco Smoking/Tobacco Use Status: Never Alcohol Alcohol Intake: former Substance Use Substance use: Never Substance use type: does not use Prental History History 2 2 Para 1 Hx # Term Pregnancies Multiple births Hx # Pregnancies Ectopic pregnancies AB induced Hx Number of Living Children AB spontaneous Vital Signs and Lab Results Vital Signs Most Recent Vital Signs in EMR: Most Recent Vital Signs Temp Pulse Resp BP Pulse Ox 36.6 C 90 16 120/71 98 02/28/25 07:42 02/28/25 07:44 02/28/25 07:42 02/28/25 07:44 02/28/25 07:42 Lab Results 02/28/25 05:18 Blood Type / Crossmatch: 2 Antibody Screen NEGATIVE 02/28/25 Complete Blood Count: 2 White Blood Count 10.01 10^3/uL (4.4-10.8) 02/28/25 05:18 Red Blood Count 3.95 10^6/uL (3.93-5.22) 02/28/25 05:18 Hemoglobin 11.9 g/dL (11.2-15.7) 02/28/25 05:18 Hematocrit 36.5 % (36.0-46.0) 02/28/25 05:18 Platelet Count 237 10^3/uL (130-400) 02/28/25 05:18 Complete Metabolic Panel: 2 No Data to Display Liver Function Panel: 2 No Data to Display Coagulation Panel: 2 No Data to Display Cardiac Panel: 2 No Data to Display Arterial Blood Gas: 2 No Data to Display Venous Blood Gas: 2 No Data to Display Pancreas Panel: 2 No Data to Display Thyroid Panel: 2 No Data to Display Infectious Disease: 2 No Data to Display Blood Cultures: 2 No Data to Display Toxicology Panel: 2 No Data to Display Panel: 2 No Data to Display Anesthesia Assessment and Plan Anesthesia History Personal History: No History of Anesthesia Complications Family History: No Family History of Anesthesia Complications Exercise Tolerance Exercise Tolerance: Metabolic Equivalents>4 Cardiac & Pulmonary Exam Cardiac Exam: Normal S1/S2 Heart Sounds Pulmonary Exam: Clear Bilateral Breath Sounds Implantable Cardiac Device Does patient have a Pacemaker or an ICD?: No Airway Exam Known Difficult Airway: No Mallampati Class: 2 Mouth Opening: Normal (> 3cm) Thyromental Distance: Greater than 3 cm Neck Range of Motion: Full ROM Neck Circumference: Normal Teeth Condition: Normal Dentition ASA Classification ASA Score: ASA 1 Emergency Case?: No NPO Status NPO Status: NPO Clears >2 hours, Solids >8 hours Status Status: Confirmed Anesthesia Plan Resuscitation Status: Full Code Anesthesia Technique: Spinal Anesthesia Airway Planned: Natural Airway Monitors Used: Standard Monitors
--- NOTE | 2025-02-28 10:40 | PROC.BLANK_ITS ---
Date of service: 02/28/25 Time of Service: 10:41 Version Note Version Note DATE OF PROCEDURE: 02/28/25 PRE-OP DIAGNOSES: Breech presentation at 37 weeks POST-OP DIAGNOSES: other (Cephalic Presentation at 37 weeks) PROCEDURE: External cephalic version SURGEON: Ann Patrick Assisting Surgeon: Symone Solorio Anesthesia: epidural Complications: None Patient was transported to: PACU Patient's condition: stable Indications: 29-year-old -0-0-1 ( x 1) at 37 weeks by LMP equal to 8-week ultrasound presents today for breech presentation at term. complicated by G2-PPH 2/2 retained placenta, GBS positive, and breech presentation. Patient was thoroughly counseled and consented for external cephalic version with possible and transfusion of blood products as needed. Findings: Complete breech presentation with head facing maternal left, spine to maternal right. Procedure Description: Patient was seen in the morning when the medical history was confirmed. Patient confirmed desire for external cephalic version. All questions were answered to patient's satisfaction. FHT was noted to be category 1, and review of most recent ultrasound found a baby measuring at 6 pounds 11 ounces with an NATHANAEL well above 10. The placenta was noted to be anterior fundal. Patient was taken back to the OR with IV fluids running. Epidural anesthesia was established, and the patient was laid down on the operating table in supine positioning. Patient was allowed to have her arms relaxed at her sides. She had just urinated right before entering the OR. 1 final ultrasound confirmed breech presentation as described above. Anesthesia was found to be adequate. The abdomen was dressed with olive oil and I initiated a first attempt for version in the clockwise direction to promote a forward somersault of the baby. At the conclusion of this attempt the baby had not moved from breech presentation and heart tones were noted to be in the 70s to 80s. The patient was tilted to her left, and the heart tone slowly returned to baseline. The baby was allowed to recover and and ultimately settled at a consistent category 1 strip. In the next attempt, I attempted the version in the opposite direction, and this was successful. Limited bedside ultrasound confirmed cepha lic presentation of the baby, and heart tones were reassuring. Fluid remained subjectively appropriate. The patient tolerated the procedure well and was taken to PACU for recovery. Version Outcome: Confirmed via Ultrasound and Successful Pre/Post Procedure NST Pre-Procedure NST Time on Monitor: 50 Patient States Movement: Present FHR Baseline: 130 Variability: Moderate 6-25 bpm Decelerations: None NST Results: Reactive Version Ultrasound Ultrasound Performed Ultrasound Image Saved: No
--- NOTE | 2025-02-28 12:59 | W.ANESPOSTOP ---
Postoperative Evaluation Date, Time and Location Date Performed: 02/28/25 Time Performed: 12:42 Patient Location: Obstetrics Vital Signs Most Recent Imported Vital Signs: Most Recent Vital Signs Temp Pulse Resp BP Pulse Ox 36.6 C 96 H 16 118/67 100 02/28/25 09:45 02/28/25 12:56 02/28/25 10:00 02/28/25 12:56 02/28/25 09:45 Pain Score Most Recent Pain Score: Most Recent Pain Score Pain Level 0 02/28/25 10:00 Assessment Mental Status: Awake (Alert & Oriented to Patient Baseline) Airway and Respiratory Function: Patent airway with normal (patient baseline) respiratory exam Cardiovascular Function: Hemodynamically Stable Hydration Status: Adequately Hydrated Nausea & Vomiting: No Nausea or Vomiting Pain: Pt. Denies Any Pain Peripheral Nerve Block: Other (Thighs remain heavy, able to partially straight leg lift in bed (L<R). Has not voided. Discussed these must be completed prior to going home. Demonstrated awareness. ) Postoperative Comments:: Discussed plan of care with nursingLeonardo RN aware.
[2025-02-28] MEDS: Acetaminophen 325 MG TAB 650 MG PO (15:52)
[2025-02-28] MEDS: Cyclobenzaprine 10 MG TAB PO (16:06)
--- NOTE | 2025-02-28 18:12 | W.PM.OBDISCH ---
Date of service: 02/28/25 Time of Service: 18:12 DS: Diagnosis Discharge Diagnosis (1) Breech presentation successfully converted to cephalic presentation, delivered: Start date: 02/28/25 Start time: 18:15 Status: Acute Discharge Plan Disposition Patient Disposition: Home Condition: Good Discharge Details Reason For Visit: External cephalic version Attending Provider: Ann Patrick Primary Care Provider: Heidi Wright Home Meds and New Rx's Prescriptions: No Action ferrous fumarate 324 mg (106 mg iron) tablet 324 mg PO DAILY raxegfwj-nxb-It-FA 1 mg Tablet 1 tab PO 1XD Discharge Instructions Activity:: Activity as Tolerated Diet:: As Tolerated Discharge Orders Discharge Orders: Discharge Order (Routine); Ordered 02/28/25 Ordered By: Ann Patrick Discharge Data Discharge Date/Time-TO BE ENTERED AT DEPARTURE: 02/28/25 18:00 OB:DS Summary Contraception Discussed Contraception Discussed: No, Status at Discharge Functional status at discharge: independent ambulation Overall status at discharge: patient is back to baseline Mental Status: mental status grossly normal Speech and Movement: speech and movement normal Mood: congruent mood Affect: normal affect Quality:SDOH Health Related Social Needs: No Data to Display Hospital Course 29-year-old -0-0-1 ( x 1) at 37 weeks by LMP equal to 8-week ultrasound presents today for breech presentation at term. complicated by G2-PPH 2/2 retained placenta, GBS positive, and breech presentation. Patient expresses interest in external cephalic version. She was counseled extensively and ultimately consented for external cephalic version with possible and transfusion of blood products as needed. She received an epidural and external cephalic version was successful. She was monitored for several hours following her version. Her epidural did take some extra time to wear off, but she was ultimately able to urinate and ambulate. She expressed some concerns for back pressure and pressure through her thighs suspiciously similar to the sensation she had when entering labor in her in her first . An SVE found her to be 1 / 50 / -2 / medium / posterior. She had no bleeding or leakage. She was offered extended monitoring vs discharge with instructions for low threshold for returning if further concerns arise. Patient opted for discharge. Exam Physical Exam Vital signs: Temp Pulse Resp BP Pulse Ox 98.2 F 91 H 16 119/65 100 04/23/25 15:08 02/28/25 15:08 02/28/25 15:08 02/28/25 15:08 02/28/25 09:45 PFSH All Active Problems (Updated 02/28/25 @ 18:13 by Ann Patrick DO) Breech presentation successfully converted to cephalic presentation, delivered (Acute) Positive GBS test (Acute) History of hemorrhage (Acute) Breech presentation (Acute) Social History Smoking/Tobacco Use Status: Never Smoking risk assessment performed?: Yes Alcohol Intake: former Drug use: Never Substance use type: does not use Housing: house Do you feel safe at home: Yes Do you feel safe in your relationship?: Yes History History 2 Para 1 Hx # Term Pregnancies Multiple births Hx # Pregnancies Ectopic pregnancies AB induced Hx Number of Living Children AB spontaneous DS: Data Vitals/I&O Vitals and I&O: Vital Signs Temperature 98.2 F 02/28/25 15:08 Temperature Source Oral 02/28/25 15:08 Pulse 91 H 02/28/25 15:08 Pulse Rhythm Regular 02/28/25 07:42 Respiratory Rate 16 02/28/25 15:08 Blood Pressure 119/65 02/28/25 15:08 Blood Pressure Mean 83 02/28/25 15:08 Pulse Oximetry 100 02/28/25 09:45 Oxygen Delivery Method Room Air 02/28/25 07:42 Oxygen Flow Rate 0 02/28/25 07:42 Pain Level 6 02/28/25 16:52 Intake & Output 02/27/25 02/28/25 02/28/25 23:59 11:59 23:59 Intake Total 285.417 / 285.417 Output Total 300 / 1400 1100 / 1400 Balance -14.583 / -1114.583 -1100 / -1114.583 Weight 146 lb Intake: IV 285.417 / 285.417 Output: Urine 300 / 1400 1100 / 1400 Other: Urine Color Pale Yellow Yellow Urine Appearance Clear Clear Urine Odor None None Data Completed and Pending Labs on day of discharge: Labs from last 24 hours 02/28/25 05:18 WBC 10.01 RBC 3.95 Hgb 11.9 Hct 36.5 MCV 92 MCH 30.1 MCHC 32.6 RDW 14.8 H Plt Count 237 MPV 9.9 ABO/Rh O Positive Antibody Screen NEGATIVE
--- NOTE | 2025-03-02 09:32 | PDOC.ANES ---
Date of service: 03/02/25 Time of Service: 09:32 Anesthesia Note Report Anesthesia Note: Advised from andres that patient was havign a headache yesterday that seemed consistent with PDPH. Advised to stay hydrated. I just Spoke with Aminah and she stated that yesterday morning she has a mild headache/neck pain that was worse with sitting or standing but she was still able to ambulate and perform tasks. She took tylenol which seemed to help. Last night this became worse, but this morning she does not notice the headache anymore. No visual changes/paresthesia/motor weakness when asked. Advised to stay hydrated and could drink coffee or take caffeine dose of around 300mg which may help if this comes back. Advised her to call back with any concerns or go to Emergency Department if concerned. Her story is consistent with spinal headache that may be already resolved/resolving. CSE Procedure was straight forward with no concerns.
== END 2025-02-28 18:00 | disposition home or self-care (01) ==
LOC: SUR 05:09 → OBS 07:34
PROVIDERS: PCP Family Medicine; Visit Provider Obstetrics & Gynecology
PROC: 10D07Z8 Extraction of Products of Conception, Other, Via Natural or Artificial Opening (ICD-10-PCS; CPT 59412; principal; 2025-02-28 08:45)
DX: O32.1XX0 Maternal care for breech presentation, not applicable or unspecified (principal); O99.820 Streptococcus B carrier state complicating pregnancy; Z3A.37 37 weeks gestation of pregnancy
CPT/HCPCS: 59412; 59025; 85027; 86850; 86900; 86901; J0665; J2371; J2405

== ENCOUNTER 2025-03-17 16:09 | Inpatient (IN) | payer BC, SELFPAY ==
[2025-03-17] VITALS (44 sets, daily range): BP systolic 122–172; BP diastolic 56–79; PULSE 83–120; RESP 14–18; TEMP 36.6; O2SAT 94–100; BMI 25.0
--- NOTE | 2025-03-17 17:11 | HPE_ITS ---
Date of service: 03/17/25 Time of Service: 17:11 Assessment and Plan Assessment and plan (1) Breech presentation successfully converted to cephalic presentation, delivered: Status: Acute Assessment and plan: VTX confirmed today on exam - version effective (2) Positive GBS test: Status: Acute Assessment and plan: Prophy abx started - goal is two doses 4 hrs apart (3) History of hemorrhage: Status: Acute Assessment and plan: Tobin and Hall aware of risk and our plans for active mgmt third stage, prompt placenta delivery. IV heplock in place, pit and uterotonic meds available (4) Uterine contractions at greater than 20 weeks of gestation: Status: Acute Assessment and plan: expect recheck cervix in 1-2 hrs - if progress - Tobin may want to pursue/initiate epidural Nitrous prn in meantime walk/shower/massage/support from partner low risk for sd, risk for PPH - pt and Center colleagues aware OB-HPI Labor/Delivery History of Present Illness Reason for Visit: labor Chief Complaint: Uterine Contractions; Suspected Labor. DEEDEE Calculator Estimated Delivery Date Method Current WG Current Estimate 03/19/25 LMP (Certain) 39w 5d Other Estimates 03/20/25 Ultrasound #1 39w 4d History of Present Expected Delivery Route/Plan 29 yo @ 39 5/7 with onset mild ctx ~03:00 5/10. Initially q 20-30 min and mild. Since ~14:00 more intense (needs to stop focus and breathe) and closer - now q 10-12. Good FMVT, no ROM, mild bloody show. slept well last noc, eating/po fluid intake nl. No N/V GBS pos. OB hx - Nitrous and epidural use times two - plans same in current labor. [place] wt 6 5oz, Bes wt 7 1 oz. Retained nivia and PP anemia with Bes. Vacuum with [place] - no shoulders with either. Assessment: History Reviewed & Current Informed Consent Informed Consent: Risk,Benefits,Alternatives Discussed PFSH All Active Problems (Updated 03/17/25 @ 17:41 by Clem Croft) Uterine contractions at greater than 20 weeks of gestation (Acute) Breech presentation successfully converted to cephalic presentation, delivered (Acute) Positive GBS test (Acute) History of hemorrhage (Acute) Breech presentation (Acute) Social History Smoking/Tobacco Use Status: Never Smoking risk assessment performed?: Yes Alcohol Intake: former Drug use: Never Substance use type: does not use Housing: house Do you feel safe at home: Yes Do you feel safe in your relationship?: Yes History History 2 Para 1 Hx # Term Pregnancies Multiple births Hx # Pregnancies Ectopic pregnancies AB induced Hx Number of Living Children AB spontaneous Meds Allergies and Home Medications Allergies Allergy/AdvReac Type Severity Reaction Status Date / Time No Known Allergies Allergy Verified 02/27/25 09:50 Home Medications ?Medication ?Instructions ?Recorded ?Confirmed ?Type nukkdkhf-kcx-Eb-FA 1 mg 1 tab PO 1XD 07/15/22 02/27/25 History tablet ferrous fumarate 324 mg (106 mg 324 mg PO DAILY 02/22/25 02/27/25 History iron) tablet Exam Physical Exam Vital signs: Temp Pulse Resp BP Pulse Ox 36.6 C 88 14 128/74 99 03/17/25 16:23 03/17/25 16:23 03/17/25 16:23 03/17/25 16:23 03/17/25 16:23 Vital Signs Reviewed: Yes Narrative: Bright, comfortable between ctx - discomfort with ctx skin - clear mild varicosities - vulvar and ant thigh lungs - clear cvs - reg, no murmur abd - 35 cm FH - gravid non-tender uterus ext - no edema Constitutional Constitutional: no acute distress Detailed Labor and Delivery Exam Dilation: 3 Effacement (%): 50 station: -1 Position: OT Cervix position: anterior Consistency: soft Mccoy Score: Cervical Points Exam 0 1 2 3 Dilation Closed 1-2cm 3-4 cm 5-6cm Effacement 0-30% 40-50% 60-70% 80% Consistency Firm Medium Soft Station -3 -2 -1,0 +1,+2 Position Posterior Mid Anterior MCCOY Score(Cervical Ripeness Score): 9 Amniotic Membrane Status: Intact Monitor Mode: External Contraction Frequency(min): q 10-15 Contraction Duration(sec): 45-60 Contraction Intensity: Moderate/Strong Fetus A Heart Rate Baseline: 130 Monitor Accelerations: 15 X 15 Monitor Decelerations: None Variability: Moderate (6-25 BPM) Presentation: Cephalic Categories: Category I Est. Weight: 3000 g Assessment Note: category 1 NST, good FMVT Risk Assessment Risk for Shoulder Dystocia Increased Risk?: No Risk for Pre-Eclampsia Daily Dose ASA Indicated: No Risk for Post- Hemorrhage Initial: POSITIVE FOR: Previous PPH At Risk?: Yes Interventions: education Counseled re: Active Management: Yes Date/Initials: note above [place] [facility] [place] Risks Reviewed Risks Reviewed Upon Admission: Yes
[2025-03-17 17:16] LABS: HGB 12.1 g/dL (11.2-15.7); MCHC 32.7 % (32.0-36.0); MCV 92 fL (80-95); MPV 9.8 fL (8.0-11.0); Platelet Count 229 10^3/uL (130-400); RBC 4.03 10^6/uL (3.93-5.22); RDW 14.6 % (11.7-14.6); RDW-SD 49.6 fL; WBC 10.23 10^3/uL (4.4-10.8)
[2025-03-17] MEDS: Penicillin G POT. 5,000,000 UNITS in Normal Saline 100 ML 200 UNITS IVPB (17:20)
[2025-03-17] MEDS: Lactated Ringers 1,000 ML 125 ML IV (17:20)
--- NOTE | 2025-03-17 18:52 | W.PM.OBNL1 ---
Date of service: 03/17/25 Time of Service: 18:53 Informed Consent Informed Consent: Risk,Benefits,Alternatives Discussed Objective Temp Pulse Resp BP Pulse Ox 36.6 C 88 14 128/74 99 03/17/25 16:23 03/17/25 16:23 03/17/25 16:23 03/17/25 16:23 03/17/25 16:23 Laboratory Results WBC 10.23 10^3/uL (4.4-10.8) 03/17/25 17:06 RBC 4.03 10^6/uL (3.93-5.22) 03/17/25 17:06 Hgb 12.1 g/dL (11.2-15.7) 03/17/25 17:06 Hct 37.0 % (36.0-46.0) 03/17/25 17:06 MCV 92 fL (80-95) 03/17/25 17:06 MCH 30.0 pg (27.0-33.0) 03/17/25 17:06 MCHC 32.7 % (32.0-36.0) 03/17/25 17:06 RDW 14.6 % (11.7-14.6) 03/17/25 17:06 Plt Count 229 10^3/uL (130-400) 03/17/25 17:06 MPV 9.8 fL (8.0-11.0) 03/17/25 17:06 ABO/Rh O Positive 03/17/25 17:06 Antibody Screen NEGATIVE 03/17/25 17:06 Subjective Patient Reports: New Complaints Interval history since last seen: Ctx more intense and consistently q 6-8. Feeling more pelvic pressure and some bilat ant thigh paresthesias during ctx. Good FMVT. Just started nitrous - not clear if effective, yet. Tobin requesting epidural - recalls she is at risk for another spinal JAVED (recently had one with version epidural) - No ROM first dose abx complete ~18:00. O: vitals - stable no pedal edema abd - non-tender CVX - 5 cm/70%/0 sta/intact/vtx/OA A: Active labor - steady progress GBS - first dose prophy given P: Expect - cont prn nitrous Call/order epidural At this point Tobin reluctant to take shower/walk - prefers remaining in bed S. Genereaux Results Hemoglobin/Hematocrit: Hgb 12.1 g/dL (11.2-15.7) 03/17/25 17:06 Hct 37.0 % (36.0-46.0) 03/17/25 17:06
[2025-03-17] MEDS: Bupivacaine 0.25% Pres-Free 10 ML VIAL EP (19:17)
[2025-03-17] MEDS: fentaNYL 100 MCG/2 ML VIAL EP (19:38)
[2025-03-17] MEDS: Normal Saline Flush 10 ML SYR IVP (19:40)
--- NOTE | 2025-03-17 19:53 | ANES.PREOP_ITS ---
General Info Date of Service Date Performed: 03/17/25 Height: 5 ft 4 in Weight: 66.224 kg Body Mass Index (BMI): 25.0 Meds Allergies and Home Medications Allergies Allergy/AdvReac Type Severity Reaction Status Date / Time No Known Allergies Allergy Verified 02/27/25 09:50 Home Medication ?Medication ?Instructions ?Recorded osnjkrhm-yxo-Yw-FA 1 mg 1 tab PO 1XD 07/15/22 tablet ferrous fumarate 324 mg (106 mg 324 mg PO DAILY 02/22/25 iron) tablet Current Visit Medications: Current Medications Generic Name Dose Route Start Last Admin Trade Name Freq PRN Reason Stop Dose Admin Fentanyl/Ropivacaine 200 ml 03/17/25 19:00 Fentanyl/Ropivacaine 2 Mcg/Ml And 0.1% 200 Ml Cadd Cassette EP DIRECTED KALANI Penicillin G Potassium 3,000, 50 mls @ 100 mls/hr 03/17/25 21:00 000 units/ Sodium Chloride IVPB Q4H KALANI Ringer's Solution 1,000 mls @ 125 mls/hr 03/17/25 16:30 03/17/25 18:15 IV 0 mls/hr INFUSION KALANI Infusion IV Miscellaneous Supplies 1 each 03/17/25 16:30 Iv Access IV DIRECTED KALANI IV Miscellaneous Supplies 1 each 03/17/25 16:30 Iv Access IV DIRECTED KALANI Sodium Chloride 0 ml 03/17/25 16:28 Normal Saline Flush 10 Ml Syr IVP PRN PRN Sodium Chloride 0 ml 03/17/25 20:00 Normal Saline Flush 10 Ml Syr IVP BID KALANI Sodium Chloride 0 ml 03/17/25 16:28 Normal Saline 10 Ml Vial IJ DIRECTED PRN PFSH Active Problems Active Problems: Problem Status Onset Code Uterine contractions at greater than 20 weeks of gestation Acute O47.9 Breech presentation successfully converted to cephalic presentation, delivered Acute O32.1XX0 Positive GBS test Acute B95.1 History of hemorrhage Acute Z87.59 Breech presentation Acute O32.1XX0 Tobacco Smoking/Tobacco Use Status: Never Alcohol Alcohol Intake: former Substance Use Substance use: Never Substance use type: does not use Prental History History 2 2 Para 1 Hx # Term Pregnancies Multiple births Hx # Pregnancies Ectopic pregnancies AB induced Hx Number of Living Children AB spontaneous Vital Signs and Lab Results Vital Signs Most Recent Vital Signs in EMR: Most Recent Vital Signs Temp Pulse Resp BP Pulse Ox 36.6 C 106 H 14 135/75 100 03/17/25 17:48 03/17/25 19:52 03/17/25 17:48 03/17/25 19:45 03/17/25 19:52 Lab Results 03/17/25 17:06 Blood Type / Crossmatch: 2 Antibody Screen NEGATIVE 03/17/25 Complete Blood Count: 2 White Blood Count 10.23 10^3/uL (4.4-10.8) 03/17/25 17:06 Red Blood Count 4.03 10^6/uL (3.93-5.22) 03/17/25 17:06 Hemoglobin 12.1 g/dL (11.2-15.7) 03/17/25 17:06 Hematocrit 37.0 % (36.0-46.0) 03/17/25 17:06 Platelet Count 229 10^3/uL (130-400) 03/17/25 17:06 Complete Metabolic Panel: 2 No Data to Display Liver Function Panel: 2 No Data to Display Coagulation Panel: 2 No Data to Display Cardiac Panel: 2 No Data to Display Arterial Blood Gas: 2 No Data to Display Venous Blood Gas: 2 No Data to Display Pancreas Panel: 2 No Data to Display Thyroid Panel: 2 No Data to Display Infectious Disease: 2 No Data to Display Blood Cultures: 2 No Data to Display Toxicology Panel: 2 No Data to Display Panel: 2 No Data to Display Anesthesia Assessment and Plan Anesthesia History Personal History: No History of Anesthesia Complications Family History: No Family History of Anesthesia Complications and Family History Unknown Exercise Tolerance Exercise Tolerance: Metabolic Equivalents>4 Pertinent Negatives Pertinent Negatives: No Major Cardiovascular Symptoms or Complaints, No Major Pulmonary Symptoms or Complaints and No History of CVA/TIA Cardiac & Pulmonary Exam Cardiac Exam: Normal S1/S2 Heart Sounds Pulmonary Exam: Clear Bilateral Breath Sounds Implantable Cardiac Device Does patient have a Pacemaker or an ICD?: No Airway Exam Known Difficult Airway: No Mallampati Class: 2 Mouth Opening: Normal (> 3cm) Thyromental Distance: Greater than 3 cm Neck Range of Motion: Full ROM Neck Circumference: Normal Teeth Condition: Normal Dentition ASA Classification ASA Score: ASA 1 Emergency Case?: No NPO Status NPO Status: Full Stomach () Status Status: Confirmed Anesthesia Plan Resuscitation Status: Full Code Anesthesia Technique: Spinal Anesthesia Airway Planned: Natural Airway Monitors Used: Standard Monitors Preoperative Comments:: PPDH following CSE 02/28/25, see notes
--- NOTE | 2025-03-17 20:02 | ANES.NEUR_ITS ---
Epidural/Spinal Catheter Date Performed: 03/17/25 Procedure Start: 19:36 Procedure Stop: 20:07 Requesting Provider: Clem Croft Procedure Location: Obstetrics Reason Performed: Labor Epidural Standard Monitors Applied: Blood Pressure, SpO2 and See EMR for corresponding vital signs Patient Position: Sitting Sedation Given (Indicate Dose Given): No Sedation given Patient Mental Status: Awake Sterility: Hand Hygiene, Surgical Cap, Surgical Mask, Sterile Gloves, Sterile Drape/Sheet and Chlorhexidine Procedure Location: L2-L3 Interspace Epidural Needle: Tuohy 18 Gauge Needle Length: 3.5 Inch Needle Approach: Midline Epidural Procedure: Skin Prepped, Sterile Drape Placed, 1% Lidocaine to skin and subcutaneous tissue with 25G needle, Tuohy Needle placed, JOAQUIN to Saline Used, Epidural Catheter Placed, Negative Heme, Negative CSF Flow and Tuohy Needle Removed Catheter Placed?: Catheter Placed Test Dose (Indicate Dose Given): 3ml 1.5% Lidocaine with 1:200K Epinephrine Given and Negative Test Dose Loss of Resistance Depth (cm): 5 Catheter depth at skin (cm): 11 Dressing: [place] Dressing Placed and Mastisol Used Epidural Provider Bolus (Indicate Dose Given): Total bolus dose given in 3-5 ml divided doses, Total Ropivacaine 0.1% with Fentanyl 2mcg/ml Given from pump. (ml) Dose:: 5 ml at 1957 and Total Bupivacaine 0.25% Given (ml) Dose:: 5 ml at 1941 Additives (Indicate Dose Given ): Fentanyl PF Dose:: 100 mcg at 1941 Infusion Medication: Medication Infusion Began (at 1957) Medication Infusion: Ropivacaine 0.1% with Fentanyl 2mcg/ml Maintenance In fusion Rate (ml/hour): 10 PCEA Bolus Dose (ml): 5 Block Level: N/A Paresthesia: None Ultrasound: Not Used Number of Attempts (See previous attempts in note section): 1 Procedure Tolerated: No Complications and Patient tolerated well Procedure Outcome: Successful Procedure Comment:: Patient appears more relaxed, verbalizing minimal relief and lots of vaginal pressure. Patient has progressed to 8 cm from 5 cm(pre-procedure). Baby very low per MD. Performed By: Charissa Birmingham
--- NOTE | 2025-03-17 20:08 | W.PM.OBNL1 ---
Date of service: 03/17/25 Time of Service: 20:08 Informed Consent Informed Consent: Risk,Benefits,Alternatives Discussed Objective Temp Pulse Resp BP Pulse Ox 36.6 C 100 H 14 127/59 L 97 03/17/25 17:48 03/17/25 20:07 03/17/25 17:48 03/17/25 20:03 03/17/25 20:07 Laboratory Results WBC 10.23 10^3/uL (4.4-10.8) 03/17/25 17:06 RBC 4.03 10^6/uL (3.93-5.22) 03/17/25 17:06 Hgb 12.1 g/dL (11.2-15.7) 03/17/25 17:06 Hct 37.0 % (36.0-46.0) 03/17/25 17:06 MCV 92 fL (80-95) 03/17/25 17:06 MCH 30.0 pg (27.0-33.0) 03/17/25 17:06 MCHC 32.7 % (32.0-36.0) 03/17/25 17:06 RDW 14.6 % (11.7-14.6) 03/17/25 17:06 Plt Count 229 10^3/uL (130-400) 03/17/25 17:06 MPV 9.8 fL (8.0-11.0) 03/17/25 17:06 ABO/Rh O Positive 03/17/25 17:06 Antibody Screen NEGATIVE 03/17/25 17:06 Subjective Patient Reports: New Complaints Interval history since last seen: Epidural in place and seems effective - no hypotension CTX pattern - more freq and strong CVX - 8 cm/90/0 sta/intact/VTX ~2 hrs post first abx dose FHT - accels, mod variability, occas baseline to 95, no decels, ctx Q 3-4/strong A: good descent and cervical dilation - Expect GBS - be ready for second dose ~21:30 P: support goal of S. Genereaux Results Hemoglobin/Hematocrit: Hgb 12.1 g/dL (11.2-15.7) 03/17/25 17:06 Hct 37.0 % (36.0-46.0) 03/17/25 17:06
--- NOTE | 2025-03-17 21:20 | W.PM.OBNL1 ---
Date of service: 03/17/25 Time of Service: 21:20 Informed Consent Informed Consent: Risk,Benefits,Alternatives Discussed Objective Temp Pulse Resp BP Pulse Ox 36.6 C 103 H 14 129/77 97 03/17/25 17:48 03/17/25 21:17 03/17/25 17:48 03/17/25 21:08 03/17/25 21:17 Laboratory Results WBC 10.23 10^3/uL (4.4-10.8) 03/17/25 17:06 RBC 4.03 10^6/uL (3.93-5.22) 03/17/25 17:06 Hgb 12.1 g/dL (11.2-15.7) 03/17/25 17:06 Hct 37.0 % (36.0-46.0) 03/17/25 17:06 MCV 92 fL (80-95) 03/17/25 17:06 MCH 30.0 pg (27.0-33.0) 03/17/25 17:06 MCHC 32.7 % (32.0-36.0) 03/17/25 17:06 RDW 14.6 % (11.7-14.6) 03/17/25 17:06 Plt Count 229 10^3/uL (130-400) 03/17/25 17:06 MPV 9.8 fL (8.0-11.0) 03/17/25 17:06 ABO/Rh O Positive 03/17/25 17:06 Antibody Screen NEGATIVE 03/17/25 17:06 Subjective Patient Reports: New Complaints Interval history since last seen: Feeling pushy/pelvic pressure Nitrous plus epidural moderately effective O: vitals stable CVX - complete +2 station, vtx - no caput, OA FHT baseline 110-120, mod variability CTX q 3-4 A: entering second stage - huddle done Materenal and wellbeing P: expect - start pushing Add second dose IV abx a bit early to catch 4 hr window S.Genereaus Results Hemoglobin/Hematocrit: Hgb 12.1 g/dL (11.2-15.7) 03/17/25 17:06 Hct 37.0 % (36.0-46.0) 03/17/25 17:06
[2025-03-17] MEDS: Penicillin G POT. 3,000,000 UNITS in Normal Saline 50 ML 100 UNITS IVPB (21:26)
[2025-03-17] MEDS: FentaNYL/ROPIvacaine 2 mcg/ml and 0.1% 200 ML CADD Cassette EP (22:00)
[2025-03-17] MEDS: Oxytocin 10 UNITS/ML VIAL IM (22:20)
[2025-03-17] MEDS: Oxytocin/Normal Saline 30 UNIT/500 ML BAG 95 UNITS IV (22:30)
--- NOTE | 2025-03-17 22:50 | W.OBDELIVERY ---
Date of service: 03/17/25 Time of Service: 22:50 OB Labor/ Delivery Information Baby A Delivery Delivery Method: Spontaneaous Presentation: Cephalic Cephalic Position: Vertex Vertex Position: Left Occipital Anterior Breech Position: N/A Cord Description-Baby A: 3 Vessels Cord Description Comment: nl 3v cord Estimated Blood Loss: born in jacobo Delivery Outcome: Liveborn Complications: none Infant Transferred: Remains with Mother Note: routine olnc-oz-nbrw, 8/9 Providers Doctor: Clem Croft Labor/Delivery Information Number of Babies in Womb: 1 Steroids Given: None Reason Steroids Not Administered: N/A Group Beta Strep: Positive Antibiotics Administered: Yes Number of Doses of Antibiotics: 2 Rubella Status: Immune Stages of Labor Onset of Labor Date: 03/17/25 Onset of Labor Time: 03:00 Baby A Length-Baby A: 48.26 cm Score-1 Minute Interval(Baby A) Heart Rate-1 minute: 100 BPM or Greater Respiratory Effort- 1 minute: Spontaneous/Strong Cry Muscle Tone-1 minute: Minimal Flexion/Extension Reflex Response-1 minute: Prompt Response Color-1 minute: Bluish Hands or Feet Score-5 Minute Interval(Baby A) Heart Rate- 5 minute: 100 BPM or Greater Respiratory Effort-5 minute: Spontaneous/Strong Cry Muscle Tone-5 minute: Active Movement Reflex Response-5 minute: Prompt Response Color-5 minute: Bluish Hands or Feet Note: Labor steady with expected cervical change. Epidural and nitrous moderately effective. Cat 1 FHT throughout. Mat vitals stable. Pushed effectively for ~1 hr - crowned and with excellent control head delivered direct OA in the jacobo. No nuchal cord. Prior to restitution membranes ruptured - clear AF. Easy shoulders with ant prior to post - to mat chest for drying. Spont immediate cry, eye open, lusty and active. Spont thick mec at 1-2 min of age. Cord - delayed clamp once pulse stopped - 3VC Nl female genetailia noted. IM and IV pit started, ut immediately firm and with minimal traction amd maternal pushing intact placents delivered. no mec staining, all coteledons present, all membranes present perineum inspected and intact - no lacs near urethra either. EBL - 200 cc - firm ut 2 below umb. No edema distally. Epidural stopped. No pphem or placenta issues. plan: routine pp care
[2025-03-18 00:11] VITALS: BP 128/65; PULSE 102
[2025-03-18 01:23] VITALS: BP 130/70; PULSE 101
[2025-03-18 01:29] VITALS: BP 119/63; PULSE 100
[2025-03-18] MEDS: Ibuprofen 600 MG TAB PO ×2 (01:30→07:54)
[2025-03-18] MEDS: Acetaminophen 325 MG TAB 650 MG PO ×2 (01:30→07:55)
[2025-03-18] MEDS: Hamamelis Leaf/Glycerin 100 EACH BOX PR (01:38)
[2025-03-18] MEDS: Dibucaine 1% 28 GM TUBE TP (01:39)
[2025-03-18 05:37] VITALS: BP 111/73; PULSE 86; RESP 18; TEMP 37.1
[2025-03-18 06:20] LABS: HCT 32.9 % (36.0-46.0); HGB 10.9 g/dL (11.2-15.7); MCH 30.4 pg (27.0-33.0); MCHC 33.1 % (32.0-36.0); MCV 92 fL (80-95); MPV 9.7 fL (8.0-11.0); Platelet Count 213 10^3/uL (130-400); RBC 3.59 10^6/uL (3.93-5.22); RDW 14.7 % (11.7-14.6); RDW-SD 49.8 fL; WBC 14.78 10^3/uL (4.4-10.8)
[2025-03-18 07:59] VITALS: BP 125/76; PULSE 92; RESP 12; TEMP 37
--- NOTE | 2025-03-18 08:48 | W.ANESPOSTOP ---
Postoperative Evaluation Date, Time and Location Date Performed: 03/18/25 Time Performed: 08:48 Patient Location: Obstetrics Vital Signs Most Recent Imported Vital Signs: Most Recent Vital Signs Temp Pulse Resp BP Pulse Ox 37.0 C 92 H 12 125/76 94 03/18/25 07:59 03/18/25 07:59 03/18/25 07:59 03/18/25 07:59 03/17/25 21:31 Pain Score Most Recent Pain Score: Most Recent Pain Score Pain Level 2 03/18/25 07:55 Assessment Mental Status: Awake (Alert & Oriented to Patient Baseline) Airway and Respiratory Function: Patent airway with normal (patient baseline) respiratory exam Cardiovascular Function: Hemodynamically Stable Hydration Status: Adequately Hydrated Nausea & Vomiting: No Nausea or Vomiting Pain: Pain is tolerable per patient Peripheral Nerve Block: Patient did not receive a nerve block Postoperative Comments:: no headache
--- NOTE | 2025-03-18 13:02 | W.PM.OBDISCH ---
Date of service: 03/18/25 Time of Service: 13:02 DS: Diagnosis Discharge Diagnosis (1) Breech presentation successfully converted to cephalic presentation, delivered: Status: Acute Asessment and Plan: resolved - - vtx (2) Positive GBS test: Status: Acute Asessment and Plan: approp GBS prophy (3) History of hemorrhage: Status: Acute Asessment and Plan: N/A (4) Uterine contractions at greater than 20 weeks of gestation: Status: Acute Asessment and Plan: as per del note Discharge Plan Disposition Patient Disposition: Home Condition: Good Discharge Details Reason For Visit: labor Admit Date/Time: 03/17/25 16:09 Admit Provider: Clem Croft Attending Provider: Clem Croft Primary Care Provider: Heidi Wright Hospital Course Hospital Course: Tobin delivered a vigorous female (7# 1oz) with APGARS 8/9. Epidural and nitrous helped, pushed for ~1 hr - two doses GBS prophy abx Post course routine - po intake good, showered, doing all self care, UO good (note one episode bladder cath) BF underway - has pump at home - is experienced Good home support. Will cont PN vits and oral iron supplementation Note - no PPH or retained placenta Home Meds and New Rx's Prescriptions: No Action ferrous fumarate 324 mg (106 mg iron) tablet 324 mg PO DAILY [id number] 1 mg Tablet 1 tab PO 1XD Discharge Instructions Activity:: Activity as Tolerated Equipment/Supplies:: No Equipment Needed Diet:: As Tolerated Discharge Orders Discharge Orders: Discharge Order (Routine); Ordered 03/18/25 Ordered By: Clem Croft Discharge Data Discharge Date/Time-TO BE ENTERED AT DEPARTURE: 03/18/25 13:07 Discharge Comment: plans for 24 hr screening at [facility] 03/19/25 OB:DS Summary Summary Vaginal Delivery Method: Spontaneaous Episiotomy Description: None Laceration Description: None Laceration Extension: N/A Contraception Discussed Contraception Discussed: Yes, [place] Gender-Baby A: Female weight: 3220 g Status at Discharge Functional status at discharge: independent ambulation Overall status at discharge: patient is back to baseline Mental Status: mental status grossly normal Speech and Movement: speech and movement normal Mood: congruent mood Affect: normal affect Time Spent with Patient providing and/or coordinating discharge services: Less than 30 minutes Quality:SDOH Health Related Social Needs: No Data to Display Exam Physical Exam Vital signs: Temp Pulse Resp BP Pulse Ox 37.0 C 92 H 12 125/76 94 03/18/25 07:59 03/18/25 07:59 03/18/25 07:59 03/18/25 07:59 03/17/25 21:31 PFSH All Active Problems (Updated 03/17/25 @ 17:41 by Clem Croft) Uterine contractions at greater than 20 weeks of gestation (Acute) Breech presentation successfully converted to cephalic presentation, delivered (Acute) Positive GBS test (Acute) History of hemorrhage (Acute) Breech presentation (Acute) Social History Smoking/Tobacco Use Status: Never Smoking risk assessment performed?: Yes Alcohol Intake: former Drug use: Never Substance use type: does not use Housing: house Do you feel safe at home: Yes Do you feel safe in your relationship?: Yes History History 2 Para 1 Hx # Term Pregnancies Multiple births Hx # Pregnancies Ectopic pregnancies AB induced Hx Number of Living Children AB spontaneous DS: Data Vitals/I&O Vitals and I&O: Vital Signs Temperature 37.0 C 03/18/25 07:59 Temperature 36.6 C 03/17/25 16:14 Temperature Source Oral 03/18/25 07:59 Pulse 92 H 03/18/25 07:59 Pulse 88 03/17/25 16:14 Pulse Rhythm Regular 03/18/25 07:59 Respiratory Rate 12 03/18/25 07:59 Respiratory Depth Normal 03/17/25 17:48 Blood Pressure 125/76 03/18/25 07:59 Blood Pressure 128/74 03/17/25 16:14 Blood Pressure Mean 92 03/18/25 07:59 Pulse Oximetry 94 03/17/25 21:31 Oxygen Delivery Method Room Air 03/17/25 17:48 Oxygen Flow Rate 0 03/17/25 17:48 Pain Level 2 03/18/25 07:55 Intake & Output 03/17/25 03/18/25 03/18/25 23:59 11:59 23:59 Intake Total 359.166 / 359.166 Output Total 675 / 675 1950 / 1950 Balance -315.834 / -315.834 -1949 Weight 66.224 kg Intake: IV 359.166 / 359.166 Output: Urine 1949 Other: Urine Color Pale Pale Yellow Urine Appearance Clear Comment unable to void straight cathd for 600 cc's Data Completed and Pending Labs on day of discharge: Labs from last 24 hours 03/18/25 05:58: WBC 14.78 H, RBC 3.59 L, Hgb 10.9 L, Hct 32.9 L, MCV 92, MCH 30.4, MCHC 33.1, RDW 14.7 H, Plt Count 213, MPV 9.7 03/17/25 17:06: WBC 10.23, RBC 4.03, Hgb 12.1, Hct 37.0, MCV 92, MCH 30.0, MCHC 32.7, RDW 14.6, Plt Count 229, MPV 9.8, ABO/Rh O Positive, Antibody Screen NEGATIVE 03/17/25 16:40: WBC Cancelled, RBC Cancelled, Hgb Cancelled, Hct Cancelled, MCV Cancelled, MCH Cancelled, MCHC Cancelled, RDW Cancelled, Plt Count Cancelled, MPV Cancelled, ABO/Rh Cancelled, Antibody Screen Cancelled
== END 2025-03-18 14:30 | disposition home or self-care (01) | DRG 807 ==
PROVIDERS: Admitting Provider Family Medicine; PCP Family Medicine; Visit Provider Family Medicine
DX: O99.824 Streptococcus B carrier state complicating childbirth (principal); Z37.0 Single live birth; Z3A.39 39 weeks gestation of pregnancy
CPT/HCPCS: 00123; 36415; 85027; 86850; 86900; 86901; 96365; 59025; J0665; J2540; J2590; J3010